=== PATIENT | female | born 1950 | race Asian ===

== ENCOUNTER 2025-08-17 07:03 | Day surgery (SDC) | payer OTHER ==
[~2025-08-17] VITALS: Ht 172.7 cm; Wt 73.8 kg
[~2025-08-17 07:03] MED LIST: ATOR10 PO; CLOT10 SS; DDAVP0.1 M1 PO; DESM.01SO; Desmopressin A0.1 MG PO; ESTRADIOL1 EAC4 TD; GABA300 PO; LOSA25 PO; Lovastatin20 MG PO; NAPR500 PO; OXYACE5T PO; Omeprazole20 M1 PO; PROM25 PO; RXNAPNA550 PO; RXOXYACE PO; RXPROM25 PO
[2025-08-17 09:36] VITALS: BP 137/77
== END 2025-08-17 09:52 | disposition home or self-care (01) ==
LOC: ORSCSDS 07:03
PROVIDERS: Surgery
PROC: 0DB68ZX Excision of Stomach, Via Natural or Artificial Opening Endoscopic, Diagnostic (ICD-10-PCS; principal; 2025-08-17 08:30)
PROC: 0DBL8ZX Excision of Transverse Colon, Via Natural or Artificial Opening Endoscopic, Diagnostic (ICD-10-PCS; principal; 2025-08-17 08:30)
PROC: 0DB48ZX Excision of Esophagogastric Junction, Via Natural or Artificial Opening Endoscopic, Diagnostic (ICD-10-PCS; principal; 2025-08-17 08:30)
DX: K21.00 Gastro-esophageal reflux disease with esophagitis, without bleeding (principal); K29.50 Unspecified chronic gastritis without bleeding; K44.9 Diaphragmatic hernia without obstruction or gangrene; Z12.11 Encounter for screening for malignant neoplasm of colon; D12.3 Benign neoplasm of transverse colon; K64.4 Residual hemorrhoidal skin tags; K64.1 Second degree hemorrhoids; Z86.0100 Personal history of colon polyps, unspecified; E23.2 Diabetes insipidus; E78.5 Hyperlipidemia, unspecified; Z79.899 Other long term (current) drug therapy; Z87.891 Personal history of nicotine dependence
CPT/HCPCS: 82947; 88305; 88341; 88342; J2704; J7120

== ENCOUNTER → 2025-11-05 | Outpatient (CLI) | payer OTHER | END | disposition home or self-care (01) | LOC: LAB SHORT 14:50 → LAB 14:50 | DX: R30.0 Dysuria (principal) | CPT/HCPCS: 87077; 87086; 87186 ==